=== PATIENT | female | born 1970 | race Two or more races ===

== ENCOUNTER 2017-05-08 21:40 | Emergency (ER) | payer MEDICAID ==
[~2017-05-08] VITALS: Ht 160 cm; Wt 59.0 kg
[2017-05-08 21:56] VITALS: BP 111/66
--- NOTE | 2017-05-08 22:00 | NUR ---
TO BED 4 A 46 YO FEMALE BIBSELF C/O RASH ON BODY PER PATIENT, THEY "JUST CAME BACK FROM [place]." PATIENT IS AAOX4, AMBULATORY WITH STEADY GAIT, NAD NOTED, AFEBRILE, VSS. INITIATED COMFORT MEASURES. AWAITING FOR ER MD GONZALEZ.
--- NOTE | 2017-05-08 22:09 | NUR ---
PA AT BEDSIDE.
== END 2017-05-08 22:38 | disposition home or self-care (01) ==
LOC: ER 21:40
DX: B86 Scabies (principal)
CPT/HCPCS: A4606; Z7610

== ENCOUNTER 2019-07-29 20:29 | Emergency (ER) | payer MEDICAID ==
[~2019-07-29] VITALS: Ht 160 cm; Wt 61.2 kg
--- NOTE | 2019-07-29 20:46 | NUR ---
PT YVONNE C/C C/O "MIGRAINE HEADACHE SINCE 399". +N/V. PT HAS HX OF MIGRAINE AND TOOK MEDICATION THIS AM WITH NO RELIEF. PT STATES HEADACHE ON LEFT SIDE. PT ON MONITOR IN BED 3 WITH FAMILY AT BEDSIDE. LIGHTS TURNED OFF. WILL CONTINUE TO MONITOR.
[2019-07-29] MEDS ORDERED: KETOROLAC TROMETHAMINE INJ 30 MG/ML VIAL IV ONE (21:00)
[2019-07-29] MEDS ORDERED: IV NS 0.9% 1,000 ML BAG IV ONE (21:00)
[2019-07-29] MEDS ORDERED: diphenhydrAMINE HCL 50 MG/ML VIAL IV ONE (21:00)
[2019-07-29] MEDS ORDERED: METOCLOPRAMIDE HCL 10 MG/2 ML VIAL IV ONE (21:00)
[2019-07-29] MEDS ORDERED: METOCLOPRAMIDE HCL 10 MG/2 ML VIAL ONE (21:02)
[2019-07-29] MEDS ORDERED: KETOROLAC TROMETHAMINE INJ 30 MG/ML VIAL ONE (21:02)
[2019-07-29] MEDS ORDERED: diphenhydrAMINE HCL 50 MG/ML VIAL ONE (21:02)
--- NOTE | 2019-07-29 22:16 | NUR ---
PT RESTING IN BED WITH LIGHTS TURNED OFF AND FAMILY AT BEDSIDE. WILL CONTINUE TO MONITOR.
[2019-07-29 22:18] VITALS: BP 114/75
[2019-07-29] MEDS ORDERED: MORPHINE SULFATE INJ 4 MG/ML DISP.SYRIN ONE (22:27)
[2019-07-29] MEDS ORDERED: ONDANSETRON HCL/PF 4 MG/2 ML VIAL ONE (22:27)
[2019-07-29] MEDS ORDERED: ONDANSETRON HCL/PF - ER 4 MG/2 ML VIAL IV ONE (22:30)
[2019-07-29] MEDS ORDERED: MORPHINE SULFATE INJ 4 MG/ML DISP.SYRIN IV ONE ×2 (22:30→23:00)
--- NOTE | 2019-07-29 23:32 | NUR ---
IV removed. Catheter intact and site benign. Pressure and 4x4 applied to site. No bleeding noted.Patient discharged to home in stable condition. Written and verbal after care instructions given. Patient verbalizes understanding of instruction. PT AMBULATORY WITH STEADY GAIT.
== END 2019-07-29 23:33 | disposition home or self-care (01) ==
LOC: ER 20:37
DX: G43.909 Migraine, unspecified, not intractable, without status migrainosus (principal); R11.2 Nausea with vomiting, unspecified
CPT/HCPCS: 96361; 96374; 96375; 99283; J1200; J1885; J2270; J2405 ×2; J2765; J7030

== ENCOUNTER 2022-09-01 12:39 | Emergency (ER) | payer OTHER ==
[~2022-09-01] VITALS: Ht 154.9 cm; Wt 62.1 kg
--- NOTE | 2022-09-01 12:55 | NUR ---
REceived pt came from home c/o ABDOMINAL PAIN SINCE YESTERDAY accompany by doughter abdomin soft none tender to touch
--- NOTE | 2022-09-01 13:41 | NUR ---
BLOOD DROW BY LAB TACh at bed side
[2022-09-01 14:30] LABS: BASOPHILS % (AUTO) 0.3 % (0.0-2.0); EOSINOPHILS % (AUTO) 0.9 % (0.0-6.0); HEMATOCRIT 41 % (33-45); LYMPHOCYTES # (AUTO) 1.9 K/uL (0.8-4.8); LYMPHOCYTES % (AUTO) 33.3 % (20.0-44.0); MEAN CORPUSCULAR HGB CONC 34 g/dl (31.0-36.0); MEAN CORPUSCULAR VOLUME 87 fL (82-100); MONOCYTES # (AUTO) 0.5 K/uL (0.1-1.30); MONOCYTES % (AUTO) 9.1 % (2.0-12.0); NEUTROPHILS # (AUTO) 3.3 K/uL (1.8-8.9); NEUTROPHILS % (AUTO) 56.4 % (43.0-81.0); PLATELET COUNT (AUTO) 208 K/uL (150-450); RED BLOOD CELL COUNT(AUTO) 4.75 MIL/uL (4.0-5.2); WHITE BLOOD COUNT (AUTO) 5.8 K/uL (4.3-11.0)
[2022-09-01] MEDS ORDERED: KETOROLAC TROMETHAMINE INJ 30 MG/ML VIAL IV ONE (14:30)
[2022-09-01] MEDS ORDERED: ONDANSETRON HCL/PF 4 MG/2 ML VIAL IV ONE (14:30)
[2022-09-01] MEDS ORDERED: IV NS 0.9% 1,000 ML IV ONE (14:30)
[2022-09-01] MEDS ORDERED: FAMOTIDINE/PF INJ 20 MG/2 ML VIAL IV ONE ×2 (14:30→14:37)
--- NOTE | 2022-09-01 14:30 | NUR ---
RESTING AND ASLEEPY NO COMPLAIN
[2022-09-01] MEDS ORDERED: KETOROLAC TROMETHAMINE 15 MG/ML VIAL ONE (14:36)
[2022-09-01] MEDS ORDERED: ONDANSETRON HCL/PF 4 MG/2 ML VIAL ONE (14:37)
[2022-09-01 15:09] LABS: BILIRUBIN,URINE NEGATIVE (NEGATIVE); CALCIUM, SERUM 9.2 mg/dL (8.5-10.1); COLOR,URINE YELLOW (YELLOW); CREATININE 0.8 mg/dL (0.6-1.3); LEUKOCYTE ESTERASE ,URINE TRACE (NEGATIVE); NITRITE, URINE NEGATIVE (NEGATIVE); POTASSIUM 3.3 mmol/L (3.5-5.1); PROTEIN,URINE NEGATIVE (NEGATIVE); UGLUCOSE NEGATIVE (NEGATIVE); UROBILINOGEN,URINE 0.2 EU/dL (0.2)
[2022-09-01 15:43] LABS: RBC,URINE 0-2 /HPF (0-2)
--- NOTE | 2022-09-01 15:43 | NUR ---
UA SENT TO LAD
[2022-09-01 15:44] LABS: BACTERIA,URINE RARE /HPF (None Seen)
--- NOTE | 2022-09-01 16:20 | NUR ---
AWAITING DIPOSITION OF PATIENT BY .
[2022-09-01 16:21] LABS: ALBUMIN 3.9 g/dL (3.4-5.0); BILIRUBIN,DIRECT 0.2 mg/dL (0.0-0.2); BILIRUBIN,TOTAL 0.5 mg/dL (0.2-1.0); TOTAL PROTEIN, SERUM 7.4 g/dL (6.4-8.2)
[2022-09-01] MEDS ORDERED: POTASSIUM CHLORIDE 20 MEQ TAB.PRT.SR PO ONE ×2 (16:30→16:59)
--- NOTE | 2022-09-01 16:35 | NUR ---
Abe vo in ED - 09/01/22 at 1746 by BRIANNA AWAITING DIPOSITION OF PATIENT BY .
[2022-09-01] MEDS ORDERED: ONDA4TAB5 PO (16:58)
--- NOTE | 2022-09-01 17:20 | NUR ---
IV removed. Catheter intact and site benign. Pressure and 4x4 applied to site. No bleeding noted.
--- NOTE | 2022-09-01 17:25 | NUR ---
Patient discharged to home in stable condition. Written and verbal after care instructions given. Patient verbalizes understanding of instruction.
[2022-09-01 17:47] VITALS: BP 114/67
== END 2022-09-01 17:47 | disposition home or self-care (01) ==
LOC: ER 12:46
DX: A08.4 Viral intestinal infection, unspecified (principal); G43.909 Migraine, unspecified, not intractable, without status migrainosus; Z86.19 Personal history of other infectious and parasitic diseases
CPT/HCPCS: 99285; 96374; 96375; 96361; 85025; 80048; 83690; 80076; 84703; 81001; 36415; J3490; J2405; J7030; J1885